=== PATIENT | female | born 1980 | race Caucasian/White ===

== ENCOUNTER → 2018-05-21 15:50 | Outpatient (CLI) | payer OTHER, MEDICAID, SELFPAY ==
[2018-05-21 19:20] LABS: Thyroid Stimulating Hormone 0.69 uIU/mL (0.47-4.68)
[2018-05-21 19:39] LABS: Testosterone 34.5 ng/dL (5.71-77.0)
== END ==
PROVIDERS: PCP Family Medicine; Visit Provider Family Medicine
DX: L67.8 Other hair color and hair shaft abnormalities (principal)
CPT/HCPCS: 36415; 84403; 84443

== ENCOUNTER → 2019-09-30 15:06 | Outpatient (CLI) | payer OTHER, SELFPAY ==
[2019-09-30 16:22] LABS: Add Manual Diff / Slide Review NO; Basophils Absolute Auto 0 /uL (0-100); Basophils Percent Auto 0.3 % (0-2); Eosinophils Absolute Auto 100 /uL (0-450); Eosinophils Percent Auto 0.8 % (2-4); Hematocrit 41.2 % (36-46); Lymphocytes Absolute Auto 2500 /uL (1100-4500); Lymphocytes Percent Auto 33.3 % (25-40); Mean Corpuscular Hemoglobin 29.9 PG (26-34); Mean Corpuscular Volume 88.2 fL (80-100); Monocytes Absolute Auto 500 /uL (0-900); Monocytes Percent Auto 7.2 % (3-14); Neutrophils Absolute Auto 4300 /uL (1500-7000); Neutrophils Percent Auto 58.4 % (50-75); Platelet Count 324 X10^3/uL (150-400); Red Blood Cell Count 4.67 X10^6/uL (4.0-5.2); Red Cell Distribution Width 12.4 % (11.6-14.8); White Blood Cell Count 7.4 X10^3/uL (4.5-11.0)
== END ==
PROVIDERS: PCP Family Medicine; Referring Provider Family Medicine; Visit Provider Family Medicine
DX: R53.83 Other fatigue (principal); Z86.2 Personal history of diseases of the blood and blood-forming organs and certain disorders involving the immune mechanism
CPT/HCPCS: 36415; 85025

== ENCOUNTER → 2019-10-13 10:12 | Outpatient (CLI) | payer OTHER, SELFPAY ==
--- NOTE | 2019-10-13 10:15 | DI.US.S_ITS ---
ULTRASOUND OF RIGHT BREAST AND AXILLA: 10/13/2019 CLINICAL: Palpable right breast lump by physician. Focal right breast pain. Comparison is made to exam dated: 10/13/2019 [facility]. Color flow and real-time ultrasound of the right breast axilla were performed. Hernandez scale images of the real-time examination were reviewed. No significant abnormalities were seen sonographically in the right breast or the right axilla. IMPRESSION: NEGATIVE There is no sonographic evidence of malignancy. There is no abnormality seen in the right breast to correspond with the areas of clinical concern, palpable abnormality, and pain at 9 o'clock and in the upper outer quadrant which likely represent normal fibroglandular tissue, however, clinical followup is recommended for persistent or worsening symptoms. A screening mammogram is recommended to start at age 40. This exam was interpreted at Station ID: [id number]. Electronically Signed By: Sukh Hathaway M.D. aty/:10/13/2019 12:05:14 letter sent: Normal Exam Ultrasound BI-RADS: 1 Negative
--- NOTE | 2019-10-13 10:15 | DI.US.S_ITS ---
ULTRASOUND OF LEFT BREAST AND AXILLA: 10/13/2019 CLINICAL: Palpable left breast lump by physician. Focal left breast pain. Comparison is made to exam dated: 10/13/2019 [facility]. Real-time ultrasound of the left breast axilla was performed. Hernandez scale images of the real-time examination were reviewed. No significant abnormalities were seen sonographically in the left breast. IMPRESSION: NEGATIVE There is no sonographic evidence of malignancy. There is no abnormality seen in the left breast to correspond with the area of clinical concern, palpable abnormality, and pain at 5 o'clock as well as the upper outer quadrant which likely represents normal fibroglandular tissue, however, clinical followup is recommended for persistent or worsening symptoms. A screening mammogram is recommended at age 40. This exam was interpreted at Station ID: [id number]. Electronically Signed By: Sukh Hathaway M.D. aty/:10/13/2019 12:03:28 letter sent: Normal Exam Ultrasound BI-RADS: 1 Negative
--- NOTE | 2019-10-13 10:15 | DI.MG.S_ITS ---
BILATERAL DIGITAL DIAGNOSTIC MAMMOGRAM 3D/2D: 10/13/2019 CLINICAL: Baseline exam. Bilateral breast lumps. No prior exams were available for comparison. The tissue of both breasts is extremely dense, which lowers the sensitivity of mammography. No significant masses, calcifications, or other findings are seen in either breast. Single view superior right breast asymmetry on the mediolateral projection dispersed with spot compression views and is consistent with summation artifact. IMPRESSION: INCOMPLETE: NEEDS ADDITIONAL IMAGING EVALUATION There is no abnormality seen in either breast to correspond with the area of clinical concern, palpable abnormality, and pain, however, ultrasound is recommended which is scheduled to immediately follow this examination. This exam was interpreted at Station ID: [id number]. NOTE: For mammograms, a report in lay terms will be sent to the patient. Approximately 15% of breast malignancies will not be visualized mammographically. In the management of a palpable breast mass, a negative mammogram must not discourage biopsy of a clinically suspicious lesion. Electronically Signed By: Sukh Hathaway M.D. aty/:10/13/2019 11:06:32 ACR BI-RADS Category 0: Incomplete 3340F
== END ==
PROVIDERS: PCP Family Medicine; Referring Provider Family Medicine; Visit Provider Family Medicine
DX: R92.8 Other abnormal and inconclusive findings on diagnostic imaging of breast (principal); N63.11 Unspecified lump in the right breast, upper outer quadrant; N63.23 Unspecified lump in the left breast, lower outer quadrant; N64.4 Mastodynia
CPT/HCPCS: 76642; 77066; G0279

== ENCOUNTER → 2020-12-27 15:16 | Outpatient (CLI) | payer OTHER, SELFPAY ==
--- NOTE | 2021-01-26 09:16 | PM.CARDMON.1 ---
[facility] Report Referral & Results Date Patient Seen: 12/27/20 Requesting provider: Marlyn Tan Indication: Palpitations Duration of monitoring (days): 2 Diary information: There was 1 patient triggered event and 5 patient diary entries recorded All of these patient events were associated with sinus rhythm only Data: Minimum heart rate identified was 55 beats per minute at 01:56 on 12/28/2020 Maximum heart rate was 131 beats per minute at 06:43 on 12/28/2020 Less than 1% of identified beats were ventricular or supraventricular ectopic in origin, which would classify them as rare. 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
== END ==
PROVIDERS: PCP Family Medicine; Referring Provider Family Medicine; Visit Provider Family Medicine
DX: R00.2 Palpitations (principal)
CPT/HCPCS: 93246; 93248

== ENCOUNTER → 2021-07-15 13:52 | Outpatient (CLI) | payer OTHER, SELFPAY ==
[2021-07-15] MEDS: COVID-19 VACC #3, MRNA(MOD) 50 MCG/0.25 ML VIAL IM (13:58)
== END ==
PROVIDERS: PCP Family Medicine; Visit Provider Internal Medicine
DX: Z23 Encounter for immunization (principal)
CPT/HCPCS: 0013A; 91301

== ENCOUNTER → 2021-08-19 09:38 | Outpatient (CLI) | payer OTHER, SELFPAY ==
[2021-08-19 10:37] LABS: Influenza A - CEPHEID Flu A NEGATIVE (NEGATIVE); Influenza B - CEPHEID Flu B NEGATIVE (NEGATIVE)
[2021-08-19 11:22] LABS: COVID19 -Nasal RAPID POSITIVE (Negative)
== END ==
PROVIDERS: PCP Family Medicine; Visit Provider Physician Assistant
DX: Z20.822 Contact with and (suspected) exposure to COVID-19 (principal); R52 Pain, unspecified; R09.81 Nasal congestion; R53.83 Other fatigue; R05.9 Cough, unspecified
CPT/HCPCS: 87502; 87635

== ENCOUNTER → 2022-04-05 13:52 | Outpatient (CLI) | payer OTHER, SELFPAY ==
[2022-04-07 04:37] LABS: QuantiFERON Mitogen Value >10.00 IU/mL (.); QuantiFERON Nil Value 0.16 IU/mL (.); QuantiFERON TB Gold Plus Negative (Negative); QuantiFERON TB1 Ag Value 0.26 IU/mL (.); QuantiFERON TB2 Ag Value 0.19 IU/mL (.)
== END ==
PROVIDERS: PCP Family Medicine; Referring Provider Family Medicine; Visit Provider Family Medicine
DX: Z11.9 Encounter for screening for infectious and parasitic diseases, unspecified (principal)
CPT/HCPCS: 36415; 86480

== ENCOUNTER → 2022-11-21 15:33 | Outpatient (CLI) | payer OTHER, SELFPAY ==
--- NOTE | 2022-11-21 | DI.MG.S_ITS ---
BILATERAL DIGITAL SCREENING MAMMOGRAM 3D/2D WITH CAD: 11/21/2022 CLINICAL: Routine screening. Comparison is made to exam dated: 10/13/2019 mammogram - [facility]. Both breasts are extremely dense, which lowers the sensitivity of mammography (category d />75% glandular tissue). Current study was also evaluated with a Computer Aided Detection (CAD) system. There are grouped calcifications in the right breast central to the nipple posterior depth. These are more prominent. No other significant masses, calcifications, or other findings are seen in either breast. IMPRESSION: INCOMPLETE: NEEDS ADDITIONAL IMAGING EVALUATION The grouped calcifications in the right breast are indeterminate. Additional views with possible ultrasound are recommended. Based on the Tyrer Cuzick model (a risk assessment model) the patient's lifetime risk is 17.1% and her 10 year risk is 2.2%. According to the ACR, ACS, and NCCN guidelines, an annual breast MRI exam along with mammogram is recommended if the patient's lifetime risk is 20% or greater. This exam was interpreted at Station ID: [id number]. NOTE: For mammograms, a report in lay terms will be sent to the patient. Approximately 15% of breast malignancies will not be visualized mammographically. In the management of a palpable breast mass, a negative mammogram must not discourage biopsy of a clinically suspicious lesion. Electronically Signed By: Hoang Lagos M.D. /:11/22/2022 08:17:29 letter sent: Additional Imaging Needed ACR BI-RADS Category 0: Incomplete 3340F
== END ==
PROVIDERS: PCP Family Medicine; Referring Provider Family Medicine; Visit Provider Family Medicine
DX: Z12.31 Encounter for screening mammogram for malignant neoplasm of breast (principal)
CPT/HCPCS: 77063; 77067